=== PATIENT | male | born 1955 | race Caucasian/White ===

== ENCOUNTER 2021-02-27 14:32 | Emergency (ER) | payer MEDICARE, MEDICAID ==
[~2021-02-27] VITALS: Ht 170.2 cm; Wt 59.0 kg
[~2021-02-27 14:32] MED LIST: BACTRIM DS1 TAB OR; BENAZEPRIL10 M1 OR; CIPRO500 MG PO; DILAUDID2 MG OR; FLOMAX0.4 M1 PO; HYDROCHLOROT12.5 MG OR; KLOR-CON 1010 ME1 OR; NIASPAN500 MG OR; NORVASC5 MG OR; VITAMIN B-121000 MC1 IM
[2021-02-27] MEDS ORDERED: MOTRIN400 MG/TAB PO (16:03)
== END 2021-02-27 16:41 | disposition home or self-care (01) ==
LOC: ED 14:32
DX: M25.572 Pain in left ankle and joints of left foot (principal); M25.561 Pain in right knee; I10 Essential (primary) hypertension; R47.01 Aphasia; F99 Mental disorder, not otherwise specified